=== PATIENT | male | born 1975 | race Caucasian/White ===

== ENCOUNTER → 2018-07-12 | Outpatient (CLI) | payer BC ==
[2014-04-19 16:30] VITALS: BP 109/65
[~2018-07-12] MED LIST: OXYC1TAB15 PO
--- NOTE | 2018-07-12 13:09 | RAD ---
EXAM: Abdomen and pelvis CT without intravenous contrast. HISTORY: Right abdominal and flank pain. Constipation. TECHNIQUE: Computed tomographic images of the abdomen and pelvis were obtained without contrast. Multiplanar reformatting was performed. *One or more of the following individualized dose reduction techniques were utilized for this examination: 1. Automated exposure control. 2. Adjustment of the mA and/or kV according to patient size. 3. Use of iterative reconstruction technique. COMPARISON: 10/01/2008. FINDINGS: Evaluation of the lower thorax demonstrates no infiltrate or pleural effusion. No hepatic lesion is seen. The gallbladder is surgically absent. The pancreas, spleen and adrenal glands are unremarkable. There is no evidence of nephroureterolithiasis or obstructive uropathy. There is a small slightly hyperdense lesion along the anterior mid zone of the right kidney measuring 1.1 cm. No abnormally thickened or dilated loop of bowel is seen. The bladder is unremarkable. There are healed pelvic fractures and there is internal fixation of the bilateral iliac bones. 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 IMPRESSION: 1. No acute abdominal or pelvic finding. 2. 11 mm slightly hyperdense lesion along the anterior right kidney, corresponding with the site of a prior cyst. This may be a residual complex or hemorrhagic cyst. This is difficult to characterize in the absence of contrast. The possibility of a small solid lesion is not completely excluded. Electronically signed by: Sayra Burger MD (07/12/2018 1:06 PM) [facility]
== END | disposition home or self-care (01) ==
LOC: CT 11:34
PROVIDERS: ATTEND Physician Assistant
DX: N28.89 Other specified disorders of kidney and ureter (principal); K59.00 Constipation, unspecified; R11.2 Nausea with vomiting, unspecified; M43.8X6 Other specified deforming dorsopathies, lumbar region
CPT/HCPCS: 74176

== ENCOUNTER → 2018-08-04 | Outpatient (CLI) | payer BC ==
[2014-04-19 16:30] VITALS: BP 109/65
[~2018-08-04] MED LIST changes: +IOHEXOL 240 MG/ML 50ML VIAL. ONE; +IOHEXOL 300 MG/ML 75 ML VIAL. IV ONE
--- NOTE | 2018-08-04 10:13 | RAD ---
CT of the abdomen and pelvis with contrast 08/04/2018 INDICATION: Abdominal pain. Nausea. Renal lesion. COMPARISON STUDY: CT of the abdomen and pelvis without contrast July 12, 2018. TECHNIQUE: Multidetector CT imaging of the abdomen and pelvis was obtained following the administration of IV contrast. FINDINGS: The visualized lung bases are unremarkable. Prior cholecystectomy noted. The liver is otherwise unremarkable. The spleen, adrenal glands, and pancreas are unremarkable in appearance. The left kidney is unremarkable in appearance. There is an eccentric approximately 9 mm lesion in the anterior lateral right kidney. This is within the inferior pole. Precontrast imaging was not obtained on today's study. This likely reflects collapse of the previously demonstrated cyst, best seen in CT from September 2008 as well as in ultrasound from February 2014. Minimal enhancement of the residual wall is not excluded on the basis of this exam alone. There is no evidence of bowel obstruction. No acute inflammatory changes involving the bowel are identified. No free fluid or free air is seen in the abdomen or pelvis. The bladder is unremarkable.There is no acute osseous abnormality. Postsurgical changes to the pelvis are again noted. IMPRESSION: 1. No evidence of acute intra-abdominal abnormality 2. Small eccentric lesion in the inferior lateral right kidney likely reflects a collapsed cyst, and is stable in appearance since most recent comparison exam. Minimal enhancement not excluded. Recommend follow-up CT in one year, with and without contrast to ensure stability. CT DOSING PQRS STATEMENT: One or more of the following individualized dose reduction techniques were utilized for this examination: 1. Automated exposure control 2. Adjustment of the mA and/or kV according to patient size 3. Use of iterative reconstruction technique Electronically signed by: Ubaldo Danielle MD (08/04/2018 10:11 AM) [facility]
== END | disposition home or self-care (01) ==
LOC: CT 08:29
PROVIDERS: ATTEND Physician Assistant
DX: N28.9 Disorder of kidney and ureter, unspecified (principal); N28.89 Other specified disorders of kidney and ureter
CPT/HCPCS: 74177; Q9967

== ENCOUNTER 2019-03-04 19:58 | Emergency (ER) | payer BC ==
[~2019-03-04] VITALS: Ht 185.4 cm; Wt 91.0 kg
[~2019-03-04 19:58] MED LIST changes: -IOHEXOL 240 MG/ML 50ML VIAL. ONE; -IOHEXOL 300 MG/ML 75 ML VIAL. IV ONE
[2019-03-04] MEDS ORDERED: IV NORMAL SALINE 1,000ML 1,000 ML IV ONE (20:30)
[2019-03-04] MEDS ORDERED: DICYCLOMINE HCL 20 MG TABLET PO ONE (20:30)
[2019-03-04] MEDS ORDERED: ONDANSETRON PF 4 MG/2 ML VIAL. IV ONE (20:30)
[2019-03-04 20:50] LABS: BASO # 0.1 x10^3/uL (0.0-0.2); BASO % 1 % (0-3); EOS # 0.3 x10^3/uL (0.0-0.7); EOS % 2 % (0-3); HEMATOCRIT 45.2 % (39.0-53.0); HEMOGLOBIN 15.2 g/dL (13.0-17.5); LYMPH # 2.9 x10^3/uL (1.0-4.8); LYMPH % 28 % (24-48); MEAN CORPUSCULAR HEMOGLOBIN 30 pg (25-35); MEAN CORPUSCULAR HGB CONC 34 g/dL (31-37); MEAN CORPUSCULAR VOLUME 90 fL (79-100); MONO % 9 % (0-9); NEUT # 6.3 x10^3uL (1.8-7.7); NEUT % 60 % (31-73); PLATELET COUNT 329 x10^3/uL (140-400); RED BLOOD COUNT 5.01 x10^6/uL (4.30-5.70); RED CELL DISTRIBUTION WIDTH 14.8 % (11.5-14.5); WHITE BLOOD COUNT 10.6 x10^3/uL (4.0-11.0)
--- NOTE | 2019-03-04 20:52 | PHYS DOC ---
Past History Past Medical History: No Pertinent History Past Surgical History: Appendectomy, Cholecystectomy, Other Additional Past Surgical Histo: BAck Alcohol Use: Occasionally Drug Use: Marijuana Adult General Chief Complaint Chief Complaint: ABDOMINAL PAIN HPI HPI Patient is a 43 YO M ABDO PAIN CRAMPY MOER ON THE RIGHT FEELS IT MORE WHEN HE LIES FLAT AT NIGHT AFTER A LONG DAY AT WORK A [employer] HE HAS HAD APPY AND JEFFREY ALREADY SCHEDULED FOR GI APPT 03/12 HAS HAD THIS PAIN FOR SIX MONTHS ALMOST EVERY NIGHT LAST THREE NIGHTS WORSE HAD FOUR CROWN AND COKES AT [place] LAST NIGHT, THREW THEM UP USES TOBACCO AND MARIJUANA NO FEVER INTERMITTENT VOMITING AT NIGHT FEELS IT TOWARDS HIS RIGHT KIDNEY SOMETIMES Review of Systems Review of Systems Constitutional: Denies fever or chills [] Eyes: Denies change in visual acuity, redness, or eye pain [] HENT: Denies nasal congestion or sore throat [] Musculoskeletal: Denies back pain or joint pain [] Integument: Denies rash or skin lesions [] Neurologic: Denies headache, focal weakness or sensory changes [] Endocrine: Denies polyuria or polydipsia [] All other systems were reviewed and found to be within normal limits, except as documented in this note. Current Medications Current Medications Current Medications Medications (Trade) Dose Ordered Sig/Greyson Start Time Stop Time Status Last Admin Dose Admin Dicyclomine HCl (Bentyl) 20 mg 1X ONCE 03/04/19 20:30 03/04/19 20:31 DC 03/04/19 20:30 20 MG Ondansetron HCl (Zofran) 4 mg 1X ONCE 03/04/19 20:30 03/04/19 20:31 DC 03/04/19 20:30 4 MG Sodium Chloride 1,000 ml @ 1,000 mls/hr 1X ONCE 03/04/19 20:30 03/04/19 21:29 03/04/19 20:30 1,000 MLS/HR Allergies Allergies Allergies Coded Allergies Type Severity Reaction Last Updated Verified No Known Drug Allergies 04/18/14 No Physical Exam Physical Exam Constitutional: Well developed, well nourished, no acute distress, non-toxic appearance. [] HENT: Normocephalic, atraumatic, bilateral external ears normal, oropharynx moist, no oral exudates, nose normal. [] Eyes: PERRLA, EOMI, conjunctiva normal, no discharge. [] Neck: Normal range of motion, no tenderness, supple, no stridor. [] Pulmonary: Normal respiratory effort no increased work of breathing no obvious chest wall trauma Abdomen: Bowel sounds normal, soft, no tenderness, no masses, no pulsatile masses. [] Skin: Warm, dry, no erythema, no rash. [] Back: No tenderness, no CVA tenderness. [] Extremities: No tenderness, no cyanosis, no clubbing, ROM intact, no edema. [] Neurologic: Alert and oriented X 3, normal motor function, normal sensory function, no focal deficits noted. [] Psychologic: Affect normal, judgement normal, mood normal. [] Current Patient Data Vital Signs Vital Signs Date Time Temp Pulse Resp B/P (MAP) Pulse Ox O2 Delivery O2 Flow Rate FiO2 03/04/19 20:10 98.8 84 16 96 Room Air EKG EKG []Sinus rhythm rate 46 given patient's body habitus and frequent exercise I suspect this is benign early repolarization pattern no obvious reciprocal changes identified the borderline ST elevation in the inferior leads noted J- point elevation Radiology/Procedures Radiology/Procedures [] Course & Med Decision Making Course & Med Decision Making Pertinent Labs and Imaging studies reviewed. (See chart for details) []43 yo m abdo pain onset months ago probably gastritis given timeframe and a/w lying flat doubt acute process given timeline considered cannabis hyperemesis d/w patient will think about it f/u gi try omeprazole he is not on antacid therapy besides tums at this time. had significant improvemetn in er with gi cocktail awaiting urine then will discharge home d/w pt no need for ct given normal ct earlier this year with same symptoms and long timeframe. Dragon Disclaimer Dragon Disclaimer This electronic medical record was generated, in whole or in part, using a voice recognition dictation system. Departure Departure: Impression: Primary Impression: Abdominal pain Disposition: 01 HOME, SELF-CARE Condition: STABLE Referrals: LEORA EVANGELISTA (PCP) Scripts Ondansetron (ONDANSETRON ODT) 4 Mg Tab.rapdis 1 TAB PO PRN Q6-8HRS PRN for NAUSEA/VOMITING, #16 TAB Prov: UCHE DIANE MD 03/04/19 Pantoprazole Sodium (PROTONIX) 40 Mg Tablet.dr 1 TAB PO DAILY for gastritis, #30 TAB 2 Refills Prov: UCHE DIANE MD 03/04/19 UCHE DIANE MD Mar 04, 2019 20:52
[2019-03-04 20:58] LABS: ALBUMIN 3.7 g/dL (3.4-5.0); ALBUMIN/GLOBULIN RATIO 1.2 (1.0-1.7); CALCIUM 8.9 mg/dL (8.5-10.1); CREATININE 0.9 mg/dL (0.7-1.3); GFR 92.1; TOTAL BILIRUBIN 0.2 mg/dL (0.2-1.0); TOTAL PROTEIN 6.8 g/dL (6.4-8.2)
[2019-03-04] MEDS ORDERED: KETOROLAC 15 MG/ML VIAL. ONE (21:19)
[2019-03-04] MEDS ORDERED: ONDA4TAB12 PO (21:21)
[2019-03-04] MEDS ORDERED: PANT40TA3 PO (21:21)
[2019-03-04] MEDS ORDERED: LIDO:MAALOX 1:1 20 ML SINGLE DOSE. PO ONE (21:30)
[2019-03-04] MEDS ORDERED: KETOROLAC 15 MG/ML VIAL. IVP ONE (22:00)
[2019-03-04 22:21] LABS: BILIRUBIN,URINE NEG (NEG); CLARITY,URINE CLEAR; COLOR,URINE YELLOW; GLUCOSE,URINE NEG (NEG)
[2019-03-04 22:22] LABS: BACTERIA,URINE 0 /HPF (0-FEW); NITRITE,URINE NEG (NEG); RBC,URINE 0 /HPF (0-2); SQUAMOUS EPITHELIAL CELL,UR OCC /LPF; UROBILINOGEN,URINE 0.2 mg/dL (0.2 mg/dL); WBC,URINE OCC /HPF (0-4)
[2019-03-04 22:35] VITALS: BP 104/58
--- NOTE | 2019-03-05 12:11 | EKG ---
[address] [address] Test Date: 2019-03-04 Test Time: 20:54:45 Pat Name: JOCELYNN WEEMS Department: Room: Gender: M Hat Sizer: : [id number] Requested By: UCHE DIANE Order Number: [id number] Reading MD: Measurements Intervals [place] Rate: 46 P: 34 NH: 180 QRS: 64 QRSD: 82 T: 51 QT: 438 QTc: 384 Interpretive Statements SINUS BRADYCARDIA ST & T ABNORMALITY, CONSIDER RECENT INFERIOR MYOCARDIAL OR PERICARDIAL DAMAGE ABNORMAL ECG RI6.01 No previous ECG available for comparison
== END 2019-03-04 22:35 | disposition home or self-care (01) ==
LOC: ER 19:58
DX: R10.9 Unspecified abdominal pain (principal); R11.10 Vomiting, unspecified; F12.10 Cannabis abuse, uncomplicated; Z72.0 Tobacco use; Z90.49 Acquired absence of other specified parts of digestive tract; Z90.89 Acquired absence of other organs
CPT/HCPCS: 36415; 80053; 81001; 83690; 84484; 85025; 93005; 96361; 96374; 96375; 99285; J1885; J2405; J7030